=== PATIENT | male | born 1990 | race Asian ===

== ENCOUNTER 2018-03-24 01:07 | Emergency (ER) | payer SELFPAY ==
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
[2018-03-24 01:23] VITALS: BMI 24.2
[2018-03-24 02:20] LABS: BASO % 0.3 % (0-2.0); EOS % 0.7 % (0-4.5); HEMOGLOBIN 14.4 GM/dL (11.7-16.9); LYMPH % 17.7 % (8-40); MCH 28.4 pg (25.7-33.7); MCHC 33.6 g/dl (32.0-35.9); MEAN CELL VOLUME 84.4 fl (80-96); MONO % 6.7 % (3.8-10.2); NEUT % 74.6 % (42.8-82.8); PLATELET COUNT 358 K/MM3 (134-434); RBC 5.09 M/mm3 (4.00-5.60); RDW 15.5 % (11.9-15.9); WHITE BLOOD COUNT 13.9 K/mm3 (4.0-10.0)
[2018-03-24 02:31] LABS: INR 0.77 (0.83-1.09); PROTHROMBIN TIME (PATIENT) 9.1 SEC (9.7-13.0)
[2018-03-24 02:45] LABS: ALBUMIN 4.1 g/dl (3.4-5.0); ALK PHOS 100 U/L (45-117); ANION GAP 14 MMOL/L (8-16); BILIRUBIN,TOTAL 0.4 mg/dL (0.2-1); BLOOD UREA NITROGEN 11 mg/dL (7-18); CALCIUM 8.7 mg/dL (8.5-10.1); CHLORIDE 99 mmol/L (98-107); CO2 26 mmol/L (21-32); CREATININE 1.2 mg/dL (0.55-1.3); GLUCOSE,RANDOM 249 mg/dL (74-106); SGOT/AST 74 U/L (15-37); SGPT/ALT 81 U/L (13-61); SODIUM 139 mmol/L (136-145)
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
--- NOTE | 2018-03-24 08:15 | PDOC ---
*Physical Exam - Vital Signs Last Vital Signs Temp Pulse Resp BP Pulse Ox 97.8 F 88 19 141/79 99 03/24/18 06:47 03/24/18 06:47 03/24/18 06:47 03/24/18 06:47 03/24/18 06:47 - Physical Exam Comments: GENERAL: Awake, alert, and fully oriented, in no acute distress HEAD: No signs of trauma, normocephalic, atraumatic EYES: PERRLA, EOMI, sclera anicteric, conjunctiva clear ENT: Hearing grossly normal, nares patent, oropharynx clear without exudates. Moist mucosa NEUROLOGICAL: Cranial nerves II through XII grossly intact. Normal speech, normal gait, no focal sensorimotor deficits SKIN: Warm, Dry, normal turgor, no rashes or lesions noted 03/24/18 14:06 ED Treatment Course - LABORATORY CBC & Chemistry Diagram: 03/24/18 01:30 03/24/18 01:30 - ADDITIONAL ORDERS Additional order review: Laboratory Results 03/24/18 03/24/18 03/24/18 01:30 01:30 01:30 PT with INR 9.10 L INR 0.77 L Sodium 139 Potassium 4.0 Chloride 99 Carbon Dioxide 26 Anion Gap 14 BUN 11 Creatinine 1.2 Creat Clearance w eGFR > 60 POC Glucometer Random Glucose 249 H Calcium 8.7 Total Bilirubin 0.4 AST 74 H ALT 81 H Alkaline Phosphatase 100 Total Protein 8.0 Albumin 4.1 Alcohol, Quantitative 255.7 H 03/24/18 01:18 PT with INR INR Sodium Potassium Chloride Carbon Dioxide Anion Gap BUN Creatinine Creat Clearance w eGFR POC Glucometer [phone] Random Glucose Calcium Total Bilirubin AST ALT Alkaline Phosphatase Total Protein Albumin Alcohol, Quantitative 03/24/18 03/24/18 01:30 01:18 RBC 5.09 MCV 84.4 MCHC 33.6 RDW 15.5 MPV 9.0 Neutrophils % 74.6 Lymphocytes % 17.7 Monocytes % 6.7 Eosinophils % 0.7 Basophils % 0.3 POC Glucometer [phone] Medical Decision Making - Medical Decision Making I have assumed care of the patient from Dr. Singh, who has discussed the clinical presentation, work-up, and ED course thus far. I have reviewed the patients medical record and ED course and agree with all aspects of care thus far. Patient ambulating in ED. Oriented x3. Speech not slurred. 03/24/18 08:15 Plan for D/C Patient's friend to give pt a ride home discharge instructions and return precautions given Patient in agreement and verbalized understanding Dispo: Home 03/24/18 13:14 *DC/Admit/Observation/Transfer Diagnosis at time of Disposition: Alcohol intoxication Qualifiers: Complication of substance-induced condition: uncomplicated Qualified Code(s): F10.920 - Alcohol use, unspecified with intoxication, uncomplicated - Discharge Dispostion Disposition: HOME Condition at time of disposition: Improved Decision to Admit order: No - Referrals Referrals: [facility] [place] [Provider Group] - Patient Instructions Printed Discharge Instructions: DI for Alcohol Abuse Additional Instructions: You were seen in the Emergency Department for alcohol intoxication. Please review the handout provided at discharge. Please follow up with your primary care provider. Return to the Emergency Department if you develop fevers/chills, worsening symptoms, or new/concerning symptoms. - Post Discharge Activity
[2018-03-24 08:29] VITALS: TEMP 98
[2018-03-24 09:47] VITALS: BP 132/72; PULSE 92
--- NOTE | 2018-03-24 21:23 | EKG ---
Test Reason : Blood Pressure : / mmHG Vent. Rate : 071 BPM Atrial Rate : 071 BPM P-R Int : 196 ms QRS Dur : 092 ms QT Int : 372 ms P-R-T Axes : 030 070 042 degrees QTc Int : 404 ms NORMAL SINUS RHYTHM EARLY REPOLARIZATION NORMAL ECG NO PREVIOUS ECGS AVAILABLE Confirmed by PAM WHITE, AKIRA ([id number]) on 03/24/2018 9:22:59 PM Referred By: Confirmed By:AKIRA OROZCO MD
== END 2018-03-24 09:47 | disposition home or self-care (01) ==
LOC: JER 01:07
DX: F10.120 Alcohol abuse with intoxication, uncomplicated (principal); Y90.8 Blood alcohol level of 240 mg/100 ml or more
CPT/HCPCS: 36415; 70450-TC; 71045-TC-FY; 80053; 80307; 82962; 85025; 85610; 93005; 93010; 99282-25